=== PATIENT | female | born 1990 | race Caucasian/White ===

== ENCOUNTER 2022-07-22 15:09 | Emergency (ER) | payer OTHER, SELFPAY ==
[2022-07-22 15:22] VITALS: BP 132/88; PULSE 94; RESP 16; TEMP 37.3; O2SAT 100
--- NOTE | 2022-07-22 15:47 | ED.SKABFB ---
HPI - Skin/Abscess/Foreign Bdy General Chief complaint: Skin/Abscess/Foreign Body Stated complaint: cyst rt shoulder Time Seen by Provider: 07/22/22 15:47 Source: patient, family, RN notes reviewed and old records reviewed Mode of arrival: ambulatory Limitations: no limitations History of Present Illness HPI narrative: 31 year old female who presents to [facility] with complaints of having cyst like lesion to the top of her right shoulder for several years which has become more tender over the past week. Patient reports that her bra strap has been irritating area and area sore, mild redness, no warmth of tissue area. Patient states she squeezed area but no discharge from site. Patient reports no fevers MD complaint: other (sebaceous cyst right shoulder) Onset (ago): week(s) (increased tenderness one week) Location: back (right shoulder area) Severity scale (1-10): 1 Treatments prior to arrival: none Related Data Home Medications Medication Instructions Recorded Confirmed drospirenone 3 mg-ethinyl tablet 07/22/22 estradiol 0.02 mg tablet (Vestura (28)) Allergies Allergy/AdvReac Type Severity Reaction Status Date / Time Sulfa (Sulfonamide Allergy Rash Verified 07/22/22 15:21 Antibiotics) Review of Systems Review of Systems: CONSTITUTIONAL: Denies fever, chills, or sweats. CARDIOVASCULAR: Denies chest pain, palpitations, or edema. RESPIRATORY: Denies cough or dyspnea. SKIN: Reports cyst type of lesion to the right shoulder area with increased discomfort irritation no acute redness MUSCULOSKELETAL: Denies joint pain or myalgia. NEUROLOGIC: Denies headache, numbness, or weakness. All systems reviewed & are unremarkable except as noted in HPI and below PMFSH Comments At time of signature, agree with nursing past medical, surgical, social and family history. There is no relevant family history pertinent to the presenting complaint Exam Narrative: GENERAL: Well-appearing, well-nourished, and in no acute distress. HEAD: Normocephalic, atraumatic. EYES: PERRLA, conjunctivae clear, and EOMI. ENT: Mucous membranes moist. Oropharynx without edema, erythema or lesions. NECK: Supple. No lymphadenopathy CHEST: Clear to auscultation. No respiratory distress. HEART: Regular rate and rhythm. SKIN: Warm, dry.? 2 cm X1cm area of raised tissue to right shoulder no fluctuant tissue noted no acute warm, mild redness, and tender NEURO:? Alert and oriented x3. PSYCH: Normal mood and affect Course Course Emergency Course: Patient is aware of diagnosis, understands and agrees to treatment plan.? Anticipatory guidance given.? Patient agrees to follow-up as directed and is aware of reasons to seek care at the emergency department. Portions of this record may have been created with voice recognition software Level of Care: Express Care Visit Vital Signs Vital signs: Vital Signs Temperature 37.3 C 07/22/22 15:22 Pulse Rate 94 07/22/22 15:22 Respiratory Rate 16 07/22/22 15:22 Blood Pressure 132/88 07/22/22 15:22 Pulse Oximetry 100 07/22/22 15:22 Temperature 37.3 C 07/22/22 15:22 Pulse Rate 94 07/22/22 15:22 Respiratory Rate 16 07/22/22 15:22 Blood Pressure 132/88 07/22/22 15:22 Pulse Oximetry 100 07/22/22 15:22 Reviewed MDM - Skin/Abscess/Foreign Bdy MDM Narrative Medical decision making narrative: Does not appear at this time to be erythema multiforme, bullous, SJS, TEN; no evidence at this time to suggest RMSF, endocarditis or Lyme disease; patient looks well, nontoxic and is tolerating oral intake; no neurologic signs or symptoms; no headache, photophobia or neck pain; afebrile; appropriate for initial outpatient treatment; discussed the importance of follow-up, patient agrees; question, viral exanthema, contact dermatitis, allergic dermatitis, eczema, urticaria, [ xx ]. No soft palate or uvula edema, no tongue, lip edema or other mucosal involvement, no r
== END 2022-07-22 16:03 | disposition home or self-care (01) ==
PROVIDERS: Emergency Provider Registered Nurse
DX: L72.3 Sebaceous cyst (principal)
CPT/HCPCS: 99213; G0463